=== PATIENT | male | born 2000 ===

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

== ENCOUNTER 2018-06-08 17:48 | Emergency (ER) | payer MEDICAID, OTHER ==
[2018-06-08 17:52] VITALS: BP 141/85; PULSE 108; RESP 18; TEMP 98.9; O2SAT 97
--- NOTE | 2018-06-08 18:41 | C.PDOC ---
History Of Present Illness 17 year old male presents to the ER with a complaint of intermittent LUQ pain since yesterday. Patient reports the pain worsens with eating. Denies nausea, vomiting, Hx of similar symptoms, or change in bowel movements. Time Seen by Provider: 06/08/18 18:07 Chief Complaint (Nursing): Abdominal Pain History Per: Patient History/Exam Limitations: no limitations Onset/Duration Of Symptoms: Days Current Symptoms Are (Timing): Still Present Location Of Pain/Discomfort: LUQ Quality Of Discomfort: Unable To Describe Associated Symptoms: denies: Fever, Chills, Nausea, Vomiting Exacerbating Factors: None Alleviating Factors: None Last Bowel Movement: Today Recent travel outside of the [place]: No Past Medical History Reviewed: Historical Data, Nursing Documentation, Vital Signs Vital Signs: Last Vital Signs Temp 98.9 F 06/08/18 17:50 Pulse 108 H 06/08/18 17:50 Resp 18 06/08/18 17:50 BP 141/85 06/08/18 17:50 Pulse Ox 97 06/08/18 18:43 Family History: States: Unknown Family Hx - Social History Hx Tobacco Use: No Hx Alcohol Use: No Hx Substance Use: No - Immunization History Hx Tetanus Toxoid Vaccination: No Hx Influenza Vaccination: No Hx Pneumococcal Vaccination: No Review Of Systems Constitutional: Negative for: Fever, Chills Cardiovascular: Negative for: Chest Pain, Palpitations Respiratory: Negative for: Cough, Shortness of Breath Gastrointestinal: Positive for: Abdominal Pain. Negative for: Nausea, Vomiting , Diarrhea, Constipation, Melena, Rectal Pain Genitourinary: Negative for: Dysuria, Hematuria Musculoskeletal: Negative for: Neck Pain, Back Pain Neurological: Negative for: Headache Physical Exam - Physical Exam Appears: Non-toxic Skin: Normal Color, Warm, Dry Head: Atraumatic, Normacephalic Eye(s): bilateral: Normal Inspection Oral Mucosa: Moist Neck: Normal ROM Chest: Symmetrical, No Tenderness Cardiovascular: Rhythm Regular, No Murmur Respiratory: Normal Breath Sounds, No Rales, No Rhonchi, No Wheezing Gastrointestinal/Abdominal: Bowel Sounds, Soft, No Tenderness, No Mass, No Distention, No Hernia Back: No CVA Tenderness Extremity: Bilateral: Atraumatic, Normal Color And Temperature, Normal ROM Neurological/Psych: Oriented x3, Normal Speech Gait: Steady ED Course And Treatment O2 Sat by Pulse Oximetry: 97 (Room air) Pulse Ox Interpretation: Normal - Other Rad Abdominal x-ray X-Ray: Viewed By Me, Read By Radiologist Medical Decision Making Medical Decision Making: Patient with intermittent LUQ pain since yesterday and no current pain while in the ED. Patient has no associated fever, vomiting, diarrhea or other concerning symptoms. Abdomen soft and nontender without guarding or rebound tenderness. Based on history and exam, no further testing indicated in the ED the symptoms likely related to dypepsia or gastritis. Recommend analgesics and to keep journal with diet and symptoms and follow up with PMD or GI. The patient wants and xray. I explain to the patient, the xray will not be diagnostic but he insists. He thinks he has "gas". Abdominal x-ray ordered, results show no acute pathology and normal gas pattern. Will discharge home with Rx and instructions to follow up with PMD for further evaluation. Disposition Counseled Patient/Family Regarding: Diagnosis, Need For Followup, Rx Given - Disposition Referrals: Molly Monteiro MD [Staff Provider] - Disposition: HOME/ ROUTINE Disposition Time: 18:40 Condition: GOOD Additional Instructions: Follow up with the clinic in 2-5 days for further evaluation. Take medications as prescribed. Return to the emergency department at any time if symptoms persist or worsen. You may call [facility] for any assistance [phone]. Prescriptions: Calcium Carbonate/Simethicone [Maalox Advanced Tab Chew] 1 each PO TID PRN #20 tab.chew PRN Reason: Gi Distress Omeprazole 40 mg PO DAILY #30 capsule. 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 - Scribe Statement The provider has reviewed the documentation as recorded by the Sabraibchuy Cameron All medical record entries made by the Scribe were at my direction and personally dictated by me. I have reviewed the chart and agree that the record accurately reflects my personal performance of the history, physical exam, medical decision making, and the department course for this patient. I have also personally directed, reviewed, and agree with the discharge instructions and disposition.
--- NOTE | 2018-06-08 18:44 | RAD ---
Date of service: 06/08/2018 HISTORY: LUQ pain x1 day COMPARISON: None available. FINDINGS: BOWEL: Nonspecific bowel gas pattern. No definite free air. BONES: No acute osseous abnormality is detected. OTHER FINDINGS: Lung bases appear clear. IMPRESSION: Unremarkable study as above.
== END 2018-06-08 18:50 | disposition home or self-care (01) ==
LOC: C.ER 17:48
DX: R10.13 Epigastric pain (principal)

== ENCOUNTER 2018-12-03 23:07 | Emergency (ER) | payer MEDICAID ==
[2018-12-03 23:15] VITALS: RESP 20
--- NOTE | 2018-12-03 23:49 | C.PDOC ---
History Of Present Illness 18 year old male presents to the ED c/o nausea that started tonight. Patient states he might have eaten too much food which caused the nausea. Patient denies fever, chills, vomit, diarrhea, abdominal pain, UTI sx, recent travel, sick contacts. Time Seen by Provider: 12/03/18 23:20 Chief Complaint (Nursing): GI Problem History Per: Patient History/Exam Limitations: no limitations Onset/Duration Of Symptoms: Hrs Current Symptoms Are (Timing): Still Present Recent travel outside of the [place]: No Additional History Per: Patient Past Medical History Reviewed: Historical Data, Nursing Documentation, Vital Signs Vital Signs: Last Vital Signs Temp 98.4 F 12/03/18 23:13 Pulse 104 H 12/03/18 23:13 Resp 20 12/03/18 23:13 BP 132/81 12/03/18 23:13 Pulse Ox 97 12/03/18 23:13 - Medical History PMH: No Chronic Diseases Surgical History: No Surg Hx Family History: States: Unknown Family Hx - Social History Hx Tobacco Use: No Hx Alcohol Use: No Hx Substance Use: No - Immunization History Hx Tetanus Toxoid Vaccination: No Hx Influenza Vaccination: No Hx Pneumococcal Vaccination: No Review Of Systems Constitutional: Negative for: Fever, Chills Cardiovascular: Negative for: Chest Pain Respiratory: Negative for: Shortness of Breath Gastrointestinal: Positive for: Nausea. Negative for: Vomiting, Abdominal Pain, Diarrhea Skin: Negative for: Rash Neurological: Negative for: Weakness, Dizziness Physical Exam - Physical Exam Appears: Non-toxic, No Acute Distress Skin: Normal Color, Warm, Dry Head: Atraumatic, Normacephalic Eye(s): bilateral: Normal Inspection Oral Mucosa: Moist Neck: Normal ROM, Supple Chest: Symmetrical Cardiovascular: Rhythm Regular Respiratory: Normal Breath Sounds, No Rales, No Rhonchi, No Wheezing Gastrointestinal/Abdominal: Soft, No Tenderness, No Guarding, No Rebound Extremity: Normal ROM, No Tenderness, No Swelling Neurological/Psych: Oriented x3, Normal Speech, Normal Cognition Gait: Steady ED Course And Treatment O2 Sat by Pulse Oximetry: 97 (On RA) Pulse Ox Interpretation: Normal Progress Note: Plan: - Zofran 4 mg PO. Patient was afebrile, tolerated PO and satted he felt better. Patient was advised to follow up with PMD. Disposition Counseled Patient/Family Regarding: Diagnosis, Need For Followup - Disposition Referrals: [facility] [Outside] [facility] [Outside] Disposition: HOME/ ROUTINE Disposition Time: 23:46 Condition: STABLE Additional Instructions: Eat small meals at a time HAve warm tea when nauseous Use zofran if persistent Return to ER if worse Prescriptions: Ondansetron ODT [Zofran ODT] 1 odt PO BID PRN #5 odt PRN Reason: Nausea/Vomiting Forms: [employer] (Palestinian), General Discharge Instructions - Clinical Impression Clinical Impression: Nausea alone - PA / SENSOR SPECIALIST / Resident Statement MD/DO has reviewed & agrees with the documentation as recorded. - Scribe Statement The provider has reviewed the documentation as recorded by the Scribe Damion Colon All medical record entries made by the Scribe were at my direction and personally dictated by me. I have reviewed the chart and agree that the record accurately reflects my personal performance of the history, physical exam, medical decision making, and the department course for this patient. I have also personally directed, reviewed, and agree with the discharge instructions and disposition.
[2018-12-03 23:56] VITALS: BP 123/62; PULSE 78; TEMP 98.2
[2018-12-04 01:06] VITALS: O2SAT 97
== END 2018-12-03 23:55 | disposition home or self-care (01) ==
LOC: C.ER 23:07
DX: R11.0 Nausea (principal)

== ENCOUNTER 2018-12-30 23:11 | Emergency (ER) | payer MEDICAID ==
[2018-12-30 23:30] VITALS: BP 122/82; PULSE 116; TEMP 99.8; O2SAT 97
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
[2018-12-31 00:12] VITALS: RESP 20
== END 2018-12-31 00:10 | disposition home or self-care (01) ==
LOC: C.ER 23:11
DX: S00.83XA Contusion of other part of head, initial encounter (principal); S00.511A Abrasion of lip, initial encounter; Y04.0XXA Assault by unarmed brawl or fight, initial encounter